=== PATIENT | male | born 1975 | race Asian ===

== ENCOUNTER 2017-08-18 20:54 | Emergency (ER) | payer BC, OTHER ==
[2017-08-18 21:09] VITALS: BP 125/85; PULSE 75; TEMP 97; BMI 25.8
[2017-08-18] MEDS ORDERED: KETOROLAC TROMETHAMINE 60 MG/2 ML VIAL IM ONE (21:22)
[2017-08-18] MEDS ORDERED: CYCLOBENZAPRINE HCL 10 MG TABLET (FP) PO ONE (21:22)
[2017-08-18] MEDS ORDERED: traMADol HCL 50 MG TABLET PO ONE ×2 (21:23→22:18)
[2017-08-18] MEDS ORDERED: LIDOCAINE 5% TOPICAL PATCH TP ONE (21:23)
--- NOTE | 2017-08-18 21:23 | PDOC ---
History of Present Illness - General Chief Complaint: Pain, Acute Stated Complaint: LEFT SIDE BACK AND LEG PAIN Time Seen by Provider: 08/18/17 21:08 History Source: Patient - History of Present Illness Occurred: reports: other Severity: reports: severe Pain Location: reports: back, lower extremity Past History - Past Medical History Allergies/Adverse Reactions: Allergies Allergy/AdvReac Type Severity Reaction Status Date / Time No Known Allergies Allergy Verified 01/21/16 09:18 Home Medications: Ambulatory Orders Cyclobenzaprine HCl [Flexeril 10 mg] 10 mg PO TID PRN #9 tablet 08/18/17 Ibuprofen [Motrin -] 2 tab PO Q6H #30 tablet 08/18/17 Tramadol HCl 50 mg PO Q6H #15 tablet MDD 200 mg 08/18/17 - Suicide/Smoking/Psychosocial Hx Smoking History: Never smoked Have you smoked in the past 12 months: No Information on smoking cessation initiated: No Hx Alcohol Use: No Drug/Substance Use Hx: No Substance Use Type: None Review of Systems - Review of Systems Constitutional: No: Chills, Fever, Unexplained wgt Loss ABD/GI: No: Nausea, Vomiting, Abdominal cramping : No: Symptoms Reported, Burning, Dysuria, Hematuria Musculoskeletal: Yes: Back Pain Neurological: No: Numbness, Tingling, Weakness *Physical Exam - Vital Signs Last Vital Signs Temp Pulse Resp BP Pulse Ox 97 F L 75 20 125/85 96 08/18/17 21:08 08/18/17 21:08 08/18/17 21:08 08/18/17 21:08 08/18/17 21:08 - Physical Exam Comments: 08/18/17 22:21 Pt currently sitting in stretcher and complaining of severe left lower back pain. Has difficulty bearing weight in ED General Appearance: Yes: Appropriately Dressed, Severe Distress HEENT: positive: Normal Voice Neck: positive: Supple Respiratory/Chest: negative: Respiratory Distress Gastrointestinal/Abdominal: positive: Soft. negative: Tender, Pulsatile Mass Musculoskeletal: negative: CVA Tenderness, Vertebral Tenderness Extremity: positive: Normal Inspection Integumentary: positive: Dry, Warm Neurologic: positive: Fully Oriented, Alert, Normal Mood/Affect, Motor Strength 5/5 Medical Decision Making - Medical Decision Making 08/18/17 21:24 41-year-old male, denies any past medical history here with worsening lower back pain. Patient states 4 weeks ago developed pain to lower back, more so on the left side and was seen by his primary doctor and given medication, similar to Motrin with no relief. Since then patient has gradually worsened, sometimes located to right lower back and sometimes the left. For the past 2 days. Pain has now started radiating to left foot. No sensory changes, lower extremity weakness, bladder or bowel incontinence el anesthesia. No dysuria, hematuria, nausea, vomiting, fever or chills. No unexplained weight loss. No IV drug use. No trauma See exam Possible sciatica No red flags at this norma, i.e cauda equina, e/o infxn, weight loss, IVDA or trauma -pain control and reassess 08/18/17 22:15 XR w/ straightening of the lumbar spine that could represent spasm. Unable to give patient flexeril in ED as pt driving family home. Dose of IM Toradol given. Prescriptions for pain control sent to pharmacy. I personally gave patient one tablet of tramadol to take home tonight as patient pharmacy is currently closed Patient to follow-up with PMD this week *DC/Admit/Observation/Transfer Diagnosis at time of Disposition: Low back pain Qualifiers: Chronicity: acute Back pain laterality: unspecified Sciatica presence: unspecified whether sciatica present Qualified Code(s): M54.5 - Low back pain - Discharge Dispostion Disposition: HOME Condition at time of disposition: Improved - Prescriptions Prescriptions: Cyclobenzaprine HCl [Flexeril 10 mg] 10 mg PO TID PRN #9 tablet PRN Reason: Lower Back Pain Ibuprofen [Motrin -] 2 tab PO Q6H #30 tablet Tramadol HCl 50 mg PO Q6H #15 tablet MDD 200 mg - Referrals Referrals: Gary Albarran MD [Primary Care Provider] - - Patient Instructions Printed Discharge Instructions: Low Back Pain Additional Instructions: You were given multiple make pain medications. The first one is Motrin which is an anti-inflammatory medication and should be taken every 6 hours with food. The next medication is Flexeril which is a muscle relaxant and can be taken every 8 hours as directed. If these medications don't relieve pain significantly. You can take a tramadol. Flexeril and tramadol can make you drowsy, so only take while home. Please follow-up with your primary care physician this week - Post Discharge Activity Forms/Work/School Notes: Back to Work
[2017-08-18] MEDS ORDERED: LIDOCAINE 5% TOPICAL PATCH ONE (21:26)
[2017-08-18] MEDS ORDERED: KETOROLAC TROMETHAMINE 60 MG/2 ML VIAL ONE (21:27)
[2017-08-18] MEDS ORDERED: LIDOCAINE PATCH REMOVAL MC SCH (22:00)
[2017-08-18] MEDS ORDERED: traMADol HCL 50 MG TABLET ONE (22:19)
== END 2017-08-18 22:25 | disposition home or self-care (01) ==
LOC: JERFT 20:54
PROC: 3E0233Z Introduction of Anti-inflammatory into Muscle, Percutaneous Approach (ICD-10-PCS; principal; 2017-08-18)
DX: M54.5 Low back pain (principal)
CPT/HCPCS: 72100-TC-FY; 99281-25

== ENCOUNTER 2017-08-23 17:16 | Inpatient (IN) | payer BC ==
--- NOTE | 2017-08-23 17:28 | PDOC ---
Rapid Medical Evaluation Time Seen by Provider: 08/23/17 17:26 Medical Evaluation: Allergies Allergy/AdvReac Type Severity Reaction Status Date / Time No Known Allergies Allergy Verified 08/23/17 17:27 08/23/17 17:28 I have performed a brief in-person evaluation of this patient. The patient presents with a chief complaint of: severe LBP radiating to LLE, now w/ numbness to L toes. Seen in ED by myself 6 days ago for back pain and dc w/ meds but no improving. XR 08/18 wnl. Sent by PMD, Dr Jordan Remy, for MRI r/o cauda equina given new onset numbness to l toes. No saddle anesthesia or B/B incontinence Pertinent physical exam findings:judy uncomfortable, sitting in W/C I have ordered the following:labs, ED team to order MRI The patient will proceed to the ED for further evaluation Discharge Disposition - Diagnosis Low back pain Qualifiers: Chronicity: acute Back pain laterality: unspecified Sciatica presence: with sciatica Sciatica laterality: sciatica of left side Qualified Code(s): M54.42 - Lumbago with sciatica, left side - Referrals - Patient Instructions - Post Discharge Activity
[2017-08-23 18:03] LABS: BASO % 0.6 % (0-2.0); EOS % 6.1 % (0-4.5); HEMATOCRIT 52.7 % (35.4-49); HEMOGLOBIN 17.5 GM/dL (11.7-16.9); LYMPH % 27.7 % (8-40); MCH 26.5 pg (25.7-33.7); MCHC 33.3 g/dl (32.0-35.9); MEAN CELL VOLUME 79.6 fl (80-96); MONO % 7.7 % (3.8-10.2); NEUT % 57.9 % (42.8-82.8); PLATELET COUNT 192 K/MM3 (134-434); RBC 6.62 M/mm3 (4.00-5.60); RDW 13.9 % (11.9-15.9); WHITE BLOOD COUNT 10.7 K/mm3 (4.0-10.0)
[2017-08-23 18:15] LABS: INR 0.95 (0.82-1.09); PROTHROMBIN TIME (PATIENT) 10.7 SEC (9.7-13.0)
[2017-08-23 19:08] LABS: ALBUMIN 4.4 g/dl (3.4-5.0); ANION GAP 8 (8-16); BILIRUBIN,TOTAL 0.6 mg/dL (0.2-1.0); BLOOD UREA NITROGEN 15 mg/dL (7-18); CALCIUM 8.8 mg/dL (8.5-10.1); CHLORIDE 104 mmol/L (98-107); CO2 28 mmol/L (21-32); CREATININE 1.2 mg/dL (0.7-1.3); GLUCOSE,RANDOM 91 mg/dL (74-106); POTASSIUM 4.6 mmol/L (3.5-5.1); SGOT/AST 56 U/L (15-37); SGPT/ALT 66 U/L (12-78); SODIUM 140 mmol/L (136-145); TOT PROT 7.3 g/dl (6.4-8.2)
[2017-08-23 19:09] LABS: ALK PHOS 82 U/L (45-117)
--- NOTE | 2017-08-23 19:32 | PDOC ---
History of Present Illness - General History Source: Patient Exam Limitations: No Limitations - History of Present Illness Initial Comments: 08/23/17 21:44 The patient is a 41 year old male with a significant past medical history of HLD who presents to the ED with complaints of back pain for several weeks. The patient reports back pain that started 3 months ago. He states his back is progressively worsening and 3 weeks ago the patient could not get out of bed without assistance of his secondary to his pain. He states his back pain is worsened in the lower back and 2 weeks ago his developed pain that radiates down his left leg. 2 days ago, patient reports numbness to his left foot, left toe, and rectum. He also reports difficulty urinating this morning but had a noraml BM this morning.. Patient went to his PMD earlier today and was sent to the ED for severe back pain, saddle anesthesia, l5 and S1 raderopalothopy and rule out compression. Denies fever or chills. Denies nausea, vomiting, or diarrhea. Denies abdominal pain. Denies lightheadedness or dizziness. Denies any other symptoms. <Maximo Mejias - Last Filed: 08/24/17 01:04> <Giovani Genao - Last Filed: 08/27/17 09:43> - General Chief Complaint: Back Pain Stated Complaint: BACK PAIN Time Seen by Provider: 08/23/17 17:26 Past History <Maximo Mejias - Last Filed: 08/24/17 01:04> - Past Medical History COPD: No Other medical history: DENIES. - Suicide/Smoking/Psychosocial Hx Smoking History: Never smoked Have you smoked in the past 12 months: No Hx Alcohol Use: No Drug/Substance Use Hx: No Substance Use Type: None <Giovani Genao - Last Filed: 08/27/17 09:43> - Past Medical History Allergies/Adverse Reactions: Allergies Allergy/AdvReac Type Severity Reaction Status Date / Time No Known Allergies Allergy Verified 08/23/17 17:27 Home Medications: Ambulatory Orders Cyclobenzaprine HCl [Flexeril 10 mg] 10 mg PO TID PRN #9 tablet 08/18/17 Ibuprofen [Motrin -] 2 tab PO Q6H #30 tablet 08/18/17 Tramadol HCl 50 mg PO Q6H #15 tablet MDD 200 mg 08/18/17 Atorvastatin Ca [Lipitor] 10 mg PO HS 08/24/17 Review of Systems - Review of Systems Able to Perform ROS?: Yes Comments:: 08/23/17 21:44 CONSTITUTIONAL: No reported: Fever, Chills, Diaphoresis, Generalized Weakness, Malaise, Loss of Appetite HEENT: No reported: Rhinorrhea, Nasal Congestion, Throat Pain, Throat Swelling, Difficulty Swallowing, Mouth Swelling, Ear Pain, Eye Pain, Visual Changes CARDIOVASCULAR: No reported: Chest Pain, Syncope, Palpitations, Irregular Heart Rate, Lightheadedness, Peripheral Edema RESPIRATORY: No reported: Cough, Shortness of Breath, SOB with Exertion, Orthopnea, Wheezing , Stridor, Hemoptysis GASTROINTESTINAL: No reported: Abdominal pain, Abdominal Distension, Nausea, Vomiting, Diarrhea, Constipation, Melena, Hematochezia GENITOURINARY: + urinary incontinence, saddle anetheisa No reported: Dysuria, Frequency, Urgency, Hesitancy, Flank Pain, Genital Pain MUSCULOSKELETAL: + back pain, leg pain, saddle anesthesia, difficulty urinating No reported: Myalgia, Arthralgia, Joint Swelling, Neck Pain SKIN: No reported: Rash, Itching, Pallor HEMEATOLOGIC/IMMUNOLOGIC: No reported: Easy Bleeding, Easy Bruising, Lymphadenopathy, Frequent infections ENDOCRINE: No reported: Unexplained Weight Gain, Unexplained Weight Loss, Heat Intolerance , Cold Intolerance NEUROLOGIC +L leg weakness, Paresthesias No reported: Headache, Vertigo, Lightheadedness, Unsteady Gait, Seizure, Mental Status Changes, Incontinence PSYCHIATRIC: No reported: Anxiety, Depression All Other Systems: Reviewed and Negative <Maximo Mejias - Last Filed: 08/24/17 01:04> *Physical Exam - Vital Signs Last Vital Signs Temp Pulse Resp BP Pulse Ox 97.8 F 84 18 144/85 99 08/23/17 17:27 08/23/17 17:27 08/23/17 17:27 08/23/17 17:27 08/23/17 17:27 - Physical Exam Comments: 08/23/17 21:45 GENERAL: The patient is awake, alert, and fully oriented, Nontoxic - in no acute distress. HEAD: Normocephalic, atraumatic. EYES: extraocular movements intact, sclera anicteric, conjunctiva clear. ENT: Normal voice, Moist mucous membranes. NECK: Normal range of motion, supple LUNGS: Breath sounds equal, clear to auscultation bilaterally. No wheezes, no rhonchi, no rales. HEART: Regular rate and rhythm, normal S1 and S2 without murmur, rub or gallop. ABDOMEN: Soft, nontender, normoactive bowel sounds. No guarding, no rebound. No CVA tenderness EXTREMITIES: Normal range of motion, no edema. No clubbing or cyanosis. No cords, erythema, or tenderness. BACK: mild diffuse tendeness on lumbar approx L5/S1 region, nof prasad bony tenderness or stepoffs. NEUROLOGICAL: LLE weakness (1/5) + demished sensation on the R buttock, sensation intact on scrotum, +good rectal tone, deminished sensation along L5, S1 dermatome PSYCH: Normal mood, normal affect. SKIN: Warm, Dry, normal turgor, <Mejias,Andrys - Last Filed: 08/24/17 01:04> - Vital Signs Last Vital Signs Temp Pulse Resp BP Pulse Ox 97.8 F 84 18 144/85 99 08/23/17 17:27 08/23/17 17:27 08/23/17 17:27 08/23/17 17:27 08/23/17 17:27 - Physical Exam Comments: 08/24/17 01:21 Neuro exam: LLE weakness 5-/5, suspect initial exam was due to limitation for pain., he is ambulatory currently <Birgit,Giovani - Last Filed: 08/27/17 09:43> ED Treatment Course - LABORATORY CBC & Chemistry Diagram: 08/23/17 17:54 08/23/17 17:54 - ADDITIONAL ORDERS Additional order review: Laboratory Results 08/23/17 08/23/17 08/23/17 17:54 17:54 17:54 PT with INR 10.70 INR 0.95 Sodium 140 Potassium 4.6 Chloride 104 Carbon Dioxide 28 Anion Gap 8 BUN 15 Creatinine 1.2 Creat Clearance w eGFR > 60 Random Glucose 91 Calcium 8.8 Total Bilirubin 0.6 AST 56 H ALT 66 Alkaline Phosphatase 82 Total Protein 7.3 Albumin 4.4 Blood Type B POSITIVE Antibody Screen Negative 08/23/17 17:54 RBC 6.62 H MCV 79.6 L MCHC 33.3 RDW 13.9 MPV 8.0 Neutrophils % 57.9 Lymphocytes % 27.7 Monocytes % 7.7 Eosinophils % 6.1 H Basophils % 0.6 - RADIOLOGY Radiograph Interpretation: 08/23/17 22:52 EXAM: MRI lumbar spine without contrast FINDINGS: 1. The study is somewhat degraded by motion artifact the remainder diagnostic quality. 2. Spondylitic changes as described below. L1-L2: Unremarkable. L2-L3: Unremarkable. L3-L4: Annular fissure. L4-L5: Right paracentral disc protrusion/herniation with inferior migration of what appears to be a large disc fragment posterior to the body of L5. This results in impingement on the thecal sac and impingement on the L5 nerve roots bilaterally and possibly the left S1 nerve root. L5-S1: Small central disc protrusion/herniation. There appears to be impingement on the left S1 nerve root. 3. The conus and cauda equina are normal in appearance. 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 - Medications Given in the ED: ED Medications Discontinued Medications Generic Name Dose Route Start Last Admin Trade Name Freq PRN Reason Stop Dose Admin Sodium Chloride 1,000 mls @ 1,000 mls/hr 08/23/17 20:02 08/23/17 20:10 Normal Saline - IV 08/23/17 21:01 1,000 mls/hr .Q1H ONE Administration Morphine Sulfate 4 mg 08/23/17 19:35 08/23/17 20:10 Morphine Injection - IVPUSH 08/23/17 19:36 4 mg ONCE ONE Administration Ondansetron HCl 4 mg 08/23/17 20:02 08/23/17 20:10 Zofran Injection IVPB 08/23/17 20:03 4 mg ONCE ONE Administration <Maximo Mejias - Last Filed: 08/24/17 01:04> - LABORATORY CBC & Chemistry Diagram: 08/23/17 17:54 08/23/17 17:54 - ADDITIONAL ORDERS Additional order review: Laboratory Results 08/23/17 08/23/17 17:54 17:54 PT with INR 10.70 INR 0.95 Blood Type B POSITIVE Antibody Screen Negative 08/23/17 17:54 RBC 6.62 H MCV 79.6 L MCHC 33.3 RDW 13.9 MPV 8.0 Neutrophils % 57.9 Lymphocytes % 27.7 Monocytes % 7.7 Eosinophils % 6.1 H Basophils % 0.6 - RADIOLOGY Radiology Studies Ordered: Category Date Time Status LUMBAR SPINE MRI W/O CONTRAST [MRI] Stat MRI 08/23/17 19:23 Ordered <Giovani Genao - Last Filed: 08/27/17 09:43> Medical Decision Making - Medical Decision Making 08/23/17 19:25 41y M hx of HL, presents with worsening back pain x 3 months, L leg weakness for 2-3 days, and saddle anesthisia, urinary incontinence since yesterday. On exam pt in n odistress but has concerning signs of cord compression. will obtain a mri to r/o cord compression PMD Hemal 08/23/17 22:58 pts MRI noted for L4-L5 right paracentral disc protrusion/herniation with inferior migration of what appears to be a large disc fragment posterior to body of L5 withimpingement of thecal sac and impingement of L5 neve root bilateral and possible left S1 nerve root. L5-Si with also a small disc protrusion and impingement of left S1 conus and cauda equina are normal in appearnce Dr. Onofre (Neurosurg) paged to discuss results will notify dr. lowe - anticipate admission for further management A portion of this note was documented by scribe services under my direction. I have reviewed the details of the note, within reason, and agree with the documentation with the following case summary and management plan written by me 08/23/17 23:[address] lowe agreew tih admission for further management stable for med surg Case discussed in detail with admitting physician including history, physical exam and ancillary studies. Admitting physician has assumed care for the patient, will follow all pending diagnostics and will complete the evaluation and treatment. CRITICAL CARE DOCUMENTATION: I spent ~35 minutes of Critical Care time, excluding separately billable procedures, involving high complexity decision making to assess, manipulate and support vital system function(s) to treat single or multiple vital organ system failure and/or to prevent further life threatening deterioration of the patient' s condition. 08/24/17 00:[address] onofre, but unable to reach him called dr. gary who is air conditioning coil assembler - requested a post void residual will have pt urinate now, staets the last time he urinated was around noon, then will place hu pts able to move his L leg well and ambulate 08/24/17 01:20 pt able to urinate about 200cc of urine hu showing minimal urine output so no retention 08/24/17 01:35 case dw again with dr. gary - suspect symptms due to disc herniation with nerve impingement, not c/w cauda equina syndrome agrees with decadron 10mg IV now and 4mg Q6h I discussed the physical exam findings, ancillary test results and final diagnoses with the patient. I answered all of the patient's questions. The patient was satisfied with the care received and felt comfortable with the discharge plan and treatment plan. The patient will call their primary care physician within 24 hours to arrange follow-up and will return to the Emergency Department with any new, persistent or worsening symptoms. <Giovani Genao - Last Filed: 08/27/17 09:43> *DC/Admit/Observation/Transfer - Attestations Scribe Attestion: 08/23/17 21:45 Documentation prepared by Maximo Mejias, acting as medical insurance claims processor for Giovani Genao MD <Maximo Mejias - Last Filed: 08/24/17 01:04> - Discharge Dispostion Decision to Admit order: Yes <Giovani Genao - Last Filed: 08/27/17 09:43> Diagnosis at time of Disposition: Cord compression - Discharge Dispostion Disposition: TRANSFER ACUTE CARE/OTHER HOSP Condition at time of disposition: Guarded
[2017-08-23] MEDS ORDERED: morphine CARPU-JECT 2 MG/1 ML DISP.SYRIN IVPUSH ONE (19:35)
[2017-08-23] MEDS ORDERED: morphine SULFATE 4 MG/ML VIAL ONE (19:48)
[2017-08-23] MEDS ORDERED: ONDANSETRON 4 MG/2 ML VIAL IVPB ONE (20:02)
[2017-08-23] MEDS ORDERED: SODIUM CHLORIDE 1,000 ML IV ONE (20:02)
[2017-08-23] MEDS ORDERED: ONDANSETRON 4 MG/2 ML VIAL ONE (20:04)
[2017-08-24] MEDS ORDERED: DEXAMETHASONE SOD PHOSPHATE 10 MG/1 ML VIAL IVPUSH ONE (01:35)
[2017-08-24 05:56] VITALS: BMI 29.5
[2017-08-24 06:56] LABS: URINE APPEARANCE CLEAR; URINE BILIRUBIN NEGATIVE (<2.0 mg/dL); URINE COLOR YELLOW; URINE GLUCOSE (UA) NEGATIVE (NEGATIVE); URINE KETONE NEGATIVE (NEGATIVE); URINE LEUK ESTERASE NEGATIVE (NEGATIVE); URINE NITRITE NEGATIVE (NEGATIVE); URINE PROTEIN NEGATIVE (NEGATIVE); URINE UROBILINOGEN NEGATIVE mg/dL (0.2-1.0)
[2017-08-24 07:10] LABS: EPI CELLS RARE /HPF (FEW); URINE MUCUS RARE
--- NOTE | 2017-08-24 09:52 | HP ---
Admitting History and Physical - Primary Care Physician PCP: Gary Albarran - Admission Chief Complaint: Sever back pain History of Present Illness: 1 year old male with a significant past medical history of HLD who presents to the ED with complaints of back pain for several weeks. The patient reports back pain that started 3 months ago. He states his back is progressively worsening and 3 weeks ago the patient could not get out of bed without assistance of his secondary to his pain. He states his back pain is worsened in the lower back and 2 weeks ago his developed pain that radiates down his left leg. 2 days ago, patient reports numbness to his left foot, left toe, and rectum. He also reports difficulty urinating this morning but had a noraml BM this morning.. Patient went to his PMD earlier today and was sent to the ED for severe back pain, saddle anesthesia, l5 and S1 raderopalothopy and rule out compression. Denies fever or chills. Denies nausea, vomiting, or diarrhea. Denies abdominal pain. Denies lightheadedness or dizziness. Denies any other symptoms. - Past Medical History Cardiovascular: Yes: Hyperlipdemia - Smoking History Smoking history: Never smoked Have you smoked in the past 12 months: No - Alcohol/Substance Use Hx Alcohol Use: No Home Medications - Allergies Allergies/Adverse Reactions: Allergies Allergy/AdvReac Type Severity Reaction Status Date / Time No Known Allergies Allergy Verified 08/23/17 17:27 - Home Medications Home Medications: Ambulatory Orders Cyclobenzaprine HCl [Flexeril 10 mg] 10 mg PO TID PRN #9 tablet 08/18/17 Ibuprofen [Motrin -] 2 tab PO Q6H #30 tablet 08/18/17 Tramadol HCl 50 mg PO Q6H #15 tablet MDD 200 mg 08/18/17 Atorvastatin Ca [Lipitor] 10 mg PO HS 08/24/17 Family Disease History - Family Disease History Family History: Unremarkable Review of Systems - Review of Systems Constitutional: reports: No Symptoms Eyes: reports: No Symptoms HENT: reports: No Symptoms Neck: reports: No Symptoms Cardiovascular: reports: No Symptoms Respiratory: reports: No Symptoms Gastrointestinal: reports: No Symptoms Genitourinary: reports: Frequency, Other (Difficulty in micturation) Musculoskeletal: reports: Extremity Pain Integumentary: reports: No Symptoms Neurological: reports: Parasthesia (Saddle and Left Foot) Psychiatric: reports: No Symptoms Pain Intensity: 8 Physical Examination Vital Signs: Vital Signs Temperature 98.3 F 08/24/17 09:35 Pulse Rate 71 08/24/17 09:35 Respiratory Rate 18 08/24/17 09:35 Blood Pressure 119/76 08/24/17 09:35 O2 Sat by Pulse Oximetry (%) 97 08/23/17 23:17 Constitutional: Yes: Well Nourished, No Distress, Calm Eyes: Yes: WNL, Conjunctiva Clear, EOM Intact HENT: Yes: Atraumatic, Normocephalic. No: Drooling Neck: Yes: Supple, Trachea Midline. No: Decreased ROM, Lymphadenopathy Cardiovascular: Yes: Regular Rate and Rhythm, S1, S2. No: JVD, Murmur Respiratory: Yes: Regular, CTA Bilaterally Gastrointestinal: Yes: Normal Bowel Sounds, Soft ...Rectal Exam: Yes: WNL, Sphincter Tone Normal, Other (Sddle subjective numbness) Extremities: Yes: WNL. No: Calf Tenderness, Cold Edema: No Peripheral Pulses WNL: Yes Peripheral Pulses: Left Doralis Pedis: 2+, Right Dorsalis Pedis: 2+ Neurological: Yes: WNL, Alert, Oriented, Cran Nerves II-XII Intact, Loss of Sensation (Left S1 Dermatome), Weakness (Left EHL). No: Aphasia, Asterixis, Babinski negative, Confusion, Dysarthria, Facial Droop, Lethargy ...Motor Strength: LLE (Left EHL weakness) Labs: CBC, BMP 08/23/17 17:54 08/23/17 17:54 Imaging - Results X-ray: Report Reviewed (Normal) MRI: Report Reviewed (L5 S1 Disc herniation) Problem List - Problems (1) Cord compression Assessment/Plan: Due to large disc herniation no queda equinq dyndrome Home Medication List Medication Instructions Recorded Confirmed Type Atorvastatin Ca [Lipitor] 10 mg PO HS 08/24/17 08/24/17 History Code(s): G95.20 - UNSPECIFIED CORD COMPRESSION
[2017-08-24] MEDS ORDERED: CYCLOBENZAPRINE HCL 10 MG TABLET (FP) PO PRN (09:53)
[2017-08-24] MEDS ORDERED: HYDROmorphone HCL CARPU-JECT 1 MG/1 ML DISP.SYRIN IVPB PRN (09:57)
[2017-08-24] MEDS ORDERED: MORPHINE SULFATE 2 MG/ML VIAL IVPB PRN (10:15)
[2017-08-24] MEDS: IBUPROFEN 400 MG TABLET (FP) PO SCH ×3 (11:00→17:28)
[2017-08-24] MEDS: traMADol HCL 50 MG TABLET PO SCH ×3 (11:00→17:32)
[2017-08-24 11:27] LABS: CHOLESTEROL 164 mg/dL (50-200); TRIGLYCERIDES 221 mg/dL (35-160)
[2017-08-24 11:30] LABS: HDL CHOLESTEROL 30 mg/dL (40-60)
[2017-08-24 18:24] VITALS: BP 132/79; PULSE 64; TEMP 98.1
[2017-08-24] MEDS ORDERED: ATORVASTATIN CA 10 MG TABLET (FP) PO SCH (22:00)
== END 2017-08-24 19:13 | disposition short-term general hospital (02) | DRG 552 ==
LOC: JER 17:16 → JERBED 23:11 → UNDOADMIN 23:17 → JERBED 23:17 → J7W 08-24 02:51
PROVIDERS: ADMIT Internal Medicine; ATTEND Internal Medicine
DX: M51.06 Intervertebral disc disorders with myelopathy, lumbar region (principal); E78.5 Hyperlipidemia, unspecified; R32 Unspecified urinary incontinence
CPT/HCPCS: 36415; 72148-TC; 80053; 80061; 81003; 81015; 83721; 85025; 85610; 86850; 86900; 86901; 99282-25; J1100; J7030

== ENCOUNTER 2018-02-21 17:06 | Emergency (ER) | payer BC ==
[2018-02-21] MEDS ORDERED: IBUPROFEN 400 MG TABLET (FP) PO ONE (17:18)
[2018-02-21] MEDS ORDERED: IBUPROFEN 600 MG TABLET (FP) PO ONE (17:18)
--- NOTE | 2018-02-21 17:18 | PDOC ---
Rapid Medical Evaluation Time Seen by Provider: 02/21/18 17:15 Medical Evaluation: Allergies Allergy/AdvReac Type Severity Reaction Status Date / Time No Known Allergies Allergy Verified 08/23/17 17:27 02/21/18 17:15 The patient presents with a chief complaint of: fever, cough, sore throat, body aches x 3 days I have performed a brief in-person evaluation of this patient; Pertinent physical exam findings: 102.6, tachy, no erythema to post pharynx I have ordered the following: rapid strep, influenza , motrin 600mg The patient will proceed to the ED for further evaluation. Discharge Disposition - Diagnosis Fever Qualifiers: Fever type: unspecified Qualified Code(s): R50.9 - Fever, unspecified - Discharge Dispostion Disposition: HOME Condition at time of disposition: Stable - Prescriptions Prescriptions: Albuterol Sulfate Inhaler - [Ventolin HFA Inhaler -] 1 - 2 inh PO Q4H #1 inhaler - Referrals - Patient Instructions - Post Discharge Activity
[2018-02-21 17:22] VITALS: BP 140/70; BMI 63.3
[2018-02-21] MEDS ORDERED: ALBUTEROL SO4 2.5/IPRATROPIUM 0.5 INH SOL 3 ML VIAL.NEB. NEB ONE ×2 (18:05→18:13)
--- NOTE | 2018-02-21 18:10 | PDOC ---
History of Present Illness - General Chief Complaint: Cold Symptoms Stated Complaint: COLD SYMPTOMS Time Seen by Provider: 02/21/18 17:15 History Source: Patient Exam Limitations: No Limitations - History of Present Illness Initial Comments: 02/21/18 18:05 Patient here with complaints of chills, fevers, moist productive cough of yellow phlegm, body aches and sore throat pain 3-4 days. 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 Timing/Duration: reports: just prior to arrival, getting worse Severity: reports: mild, moderate Associated Symptoms: reports: cough, earache, fever/chills, nasal congestion, shortness of breath Past History - Travel Traveled outside of the country in the last 30 days: No Close contact w/someone who was outside of country & ill: No - Past Medical History Allergies/Adverse Reactions: Allergies Allergy/AdvReac Type Severity Reaction Status Date / Time No Known Allergies Allergy Verified 02/21/18 17:18 Home Medications: Ambulatory Orders Atorvastatin Ca [Lipitor] 10 mg PO HS 08/24/17 Albuterol Sulfate Inhaler - [Ventolin HFA Inhaler -] 1 - 2 inh PO Q4H #1 inhaler 02/21/18 Anemia: No Asthma: No Cancer: No Cardiac Disorders: No CVA: No COPD: No CHF: No Dementia: No Diabetes: No GI Disorders: No Disorders: No HTN: No Hypercholesterolemia: Yes Liver Disease: No Seizures: No Thyroid Disease: No - Surgical History Abdominal Surgery: No Appendectomy: No Cardiac Surgery: No Cholecystectomy: No Lung Surgery: No Neurologic Surgery: No Orthopedic Surgery: No - Suicide/Smoking/Psychosocial Hx Smoking History: Never smoked Have you smoked in the past 12 months: No Information on smoking cessation initiated: No Hx Alcohol Use: No Drug/Substance Use Hx: No Substance Use Type: None Hx Substance Use Treatment: No Review of Systems - Review of Systems Able to Perform ROS?: Yes Is the patient limited Upper Sorbian proficient: Yes Constitutional: Yes: Symptoms Reported, See HPI, Fever, Loss of Appetite, Malaise HEENTM: Yes: Symptoms Reported, See HPI Respiratory: Yes: Symptoms reported, See HPI, Cough, Wheezing Musculoskeletal: Yes: See HPI. No: Symptoms Reported Integumentary: Yes: See HPI. No: Symptoms Reported Neurological: Yes: Symptoms reported All Other Systems: Reviewed and Negative *Physical Exam - Vital Signs Last Vital Signs Temp Pulse Resp BP Pulse Ox 102.3 F H 120 H 16 140/70 95 02/21/18 17:18 02/21/18 17:18 02/21/18 17:18 02/21/18 17:18 02/21/18 17:18 - Physical Exam General Appearance: Yes: Nourished, Appropriately Dressed, Apparent Distress, Mild Distress HEENT: positive: BEHZAD, Normal ENT Inspection, TMs Normal, Pharynx Normal (no exudate) Neck: positive: Tender, Supple, Lymphadenopathy (R), Lymphadenopathy (L) Respiratory/Chest: positive: Lungs Clear, Normal Breath Sounds Cardiovascular: positive: Regular Rhythm Gastrointestinal/Abdominal: positive: Normal Bowel Sounds, Soft. 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, Fully Oriented, Alert, Normal Mood/ Affect, Normal Response, Motor Strength 5/5 Moderate Sedation - Procedure Monitoring Vital Signs: Procedure Monitoring Vital Signs Temperature 102.3 F H 02/21/18 17:18 Pulse Rate 120 H 02/21/18 17:18 Respiratory Rate 16 02/21/18 17:18 Blood Pressure 140/70 02/21/18 17:18 O2 Sat by Pulse Oximetry (%) 95 02/21/18 17:18 ED Treatment Course - Medications Given in the ED: ED Medications Discontinued Medications Generic Name Dose Route Start Last Admin Trade Name Freq PRN Reason Stop Dose Admin Ibuprofen 600 mg 02/21/18 17:18 02/21/18 17:23 Motrin - PO 02/21/18 17:19 600 mg ONCE ONE Administration Progress Note - Progress Note Progress Note: Strep throat, will treat with 1.2 million units of Bicillin IM with no reaction after 30 minutes *DC/Admit/Observation/Transfer Diagnosis at time of Disposition: Strep throat - Discharge Dispostion Disposition: HOME Condition at time of disposition: Stable Decision to Admit order: No - Referrals - Patient Instructions Printed Discharge Instructions: DI for Strep Throat Additional Instructions: Rest, drink lots of fluids: Teas, water, soups Eat cold things: Ice cream, ice pops, ice chips Saltwater gargles Steamy showers/seem to face break up mucus Avoid contact with others until fevers and pain resolved Lots of handwashing and good hygiene, this is contagious You have been treated with Bicillin LA 1.2 million units injection which is a one-time treatment for strep pharyngitis. You will not need to take any further antibiotics. Tylenol or Motrin for fever and pain Followup with private physician in one to 2 days as needed if not improving Return to emergency department for worsened symptoms, fevers, dehydration - Post Discharge Activity Forms/Work/School Notes: Back to Work
[2018-02-21 18:51] VITALS: PULSE 90; TEMP 100.1
[2018-02-21] MEDS ORDERED: PENICILLIN G BENZATHINE 1,200,000 UNIT/2 ML PFS IM ONE (18:51)
[2018-02-21] MEDS ORDERED: PENICILLIN G BENZATHINE 2,400,000 UNIT/4 ML PFS ONE (18:53)
== END 2018-02-21 19:28 | disposition home or self-care (01) ==
LOC: JERFT 17:06
PROC: 3E0F7GC Introduction of Other Therapeutic Substance into Respiratory Tract, Via Natural or Artificial Opening (ICD-10-PCS; principal; 2018-02-21)
PROC: 3E02329 Introduction of Other Anti-infective into Muscle, Percutaneous Approach (ICD-10-PCS; 2018-02-21)
DX: J02.0 Streptococcal pharyngitis (principal); B95.0 Streptococcus, group A, as the cause of diseases classified elsewhere
CPT/HCPCS: 87804; 87880; 99281-25

== ENCOUNTER 2018-04-21 09:00 | Emergency (ER) | payer BC ==
[2018-04-21 09:06] VITALS: BP 152/78; TEMP 98.1; BMI 27.3
--- NOTE | 2018-04-21 09:44 | PDOC ---
History of Present Illness - General Chief Complaint: Cold Symptoms Stated Complaint: RT EAR PAIN, FEVER Time Seen by Provider: 04/21/18 09:10 History Source: Patient Exam Limitations: No Limitations Past History - Past Medical History Allergies/Adverse Reactions: Allergies Allergy/AdvReac Type Severity Reaction Status Date / Time No Known Allergies Allergy Verified 04/21/18 09:04 Home Medications: Ambulatory Orders Atorvastatin Ca [Lipitor] 10 mg PO HS 08/24/17 Albuterol Sulfate Inhaler - [Ventolin HFA Inhaler -] 1 - 2 inh PO Q4H #1 inhaler 02/21/18 Azithromycin 250 mg PO DAILY #4 tablet 04/21/18 Anemia: No Asthma: No Cancer: No Cardiac Disorders: No CVA: No COPD: No CHF: No Dementia: No Diabetes: No GI Disorders: No Disorders: No HTN: No Hypercholesterolemia: Yes Liver Disease: No Seizures: No Thyroid Disease: No - Surgical History Abdominal Surgery: No Appendectomy: No Cardiac Surgery: No Cholecystectomy: No Lung Surgery: No Neurologic Surgery: No Orthopedic Surgery: No - Suicide/Smoking/Psychosocial Hx Smoking History: Never smoked Have you smoked in the past 12 months: No Hx Alcohol Use: No Drug/Substance Use Hx: No Substance Use Type: None Hx Substance Use Treatment: No *Physical Exam - Vital Signs Last Vital Signs Temp Pulse Resp BP Pulse Ox 98.1 F 104 H 18 152/78 96 04/21/18 09:04 04/21/18 09:04 04/21/18 09:04 04/21/18 09:04 04/21/18 09:04 - Physical Exam General Appearance: No: Apparent Distress HEENT: positive: Normal ENT Inspection, TMs Normal, Pharynx Normal Respiratory/Chest: positive: Lungs Clear, Normal Breath Sounds. negative: Respiratory Distress Cardiovascular: positive: Regular Rhythm, Regular Rate, S1, S2. negative: Murmur Gastrointestinal/Abdominal: positive: Normal Bowel Sounds, Soft. negative: Tender, Distended, Guarding, Rebound Integumentary: positive: Normal Color Neurologic: positive: Alert, Normal Mood/Affect Moderate Sedation - Procedure Monitoring Vital Signs: Procedure Monitoring Vital Signs Temperature 98.1 F 04/21/18 09:04 Pulse Rate 104 H 04/21/18 09:04 Respiratory Rate 18 04/21/18 09:04 Blood Pressure 152/78 04/21/18 09:04 O2 Sat by Pulse Oximetry (%) 96 04/21/18 09:04 ED Treatment Course - RADIOLOGY Radiology Studies Ordered: Category Date Time Status CHEST PA & LAT [RAD] Stat Radiology 04/21/18 09:20 Taken Medical Decision Making - Medical Decision Making 42 y/o M with hx of HLD, back surgery presents with fever, dry cough, rhinorrhea x 2-3 weeks. Mentions slight R ear pain today. Denies sob, cp, abd pain, n/v/d. Patient took Tylenol prior to coming. Has not yet seen PCP re: his symptoms. Will r/o PNA Plan: CXR 04/21/18 09:43 CXR wet read negative Given patient with URI sxs x 3 weeks and though afebrile (patient took Tylenol prior to coming), will treat for possible infectious sxs with Azithromycin 04/21/18 10:07 *DC/Admit/Observation/Transfer Diagnosis at time of Disposition: URI (upper respiratory infection) Qualifiers: URI type: unspecified URI Qualified Code(s): J06.9 - Acute upper respiratory infection, unspecified - Discharge Dispostion Disposition: HOME - Prescriptions Prescriptions: Azithromycin 250 mg PO DAILY #4 tablet - Referrals Referrals: Gary Albarran MD [Primary Care Provider] - 2 Days - Patient Instructions Printed Discharge Instructions: DI for Viral Upper Respiratory Infection -- Adult Additional Instructions: Thank you for choosing [facility]. It was a pleasure taking care of you. Your chest xray was negative Given your symptoms have been going on for 2-3 weeks, you were prescribed short course of antibiotics. Use Nedi-pot to help with congestion You can also try saline nasal spray Follow-up with your doctor in 2-3 days Return to the Emergency Department if your symptoms worsen or persist or have other concerning symptoms. - Post Discharge Activity
[2018-04-21] MEDS ORDERED: AZITHROMYCIN 250 MG TABLET PO ONE (10:02)
[2018-04-21] MEDS ORDERED: AZITHROMYCIN 250 MG TABLET ONE (10:06)
[2018-04-21 10:17] VITALS: PULSE 84
== END 2018-04-21 10:19 | disposition home or self-care (01) ==
LOC: JERFT 09:00
DX: J06.9 Acute upper respiratory infection, unspecified (principal)
CPT/HCPCS: 71046-TC-FY; 99281-25

== ENCOUNTER 2018-09-20 06:58 | Emergency (ER) | payer OTHER, BC ==
[2018-09-20 07:20] VITALS: BP 153/101; PULSE 71; TEMP 97.6; BMI 27.3
[2018-09-20] MEDS ORDERED: diazePAM 5 MG TABLET PO ONE (07:40)
[2018-09-20] MEDS ORDERED: KETOROLAC TROMETHAMINE 30 MG/1 ML VIAL IM ONE (07:40)
[2018-09-20] MEDS ORDERED: LIDOCAINE 5% TOPICAL PATCH TP ONE (07:40)
[2018-09-20] MEDS ORDERED: LIDOCAINE 5% TOPICAL PATCH ONE (07:46)
[2018-09-20] MEDS ORDERED: KETOROLAC TROMETHAMINE 30 MG/1 ML VIAL ONE (07:47)
[2018-09-20] MEDS ORDERED: diazePAM 5 MG TABLET ONE (07:47)
--- NOTE | 2018-09-20 07:58 | PDOC ---
History of Present Illness - General History Source: Patient Exam Limitations: No Limitations <Xin Rockwell - Last Filed: 09/20/18 08:38> <KarelyJulee Doctien - Last Filed: 09/20/18 10:56> - General Chief Complaint: Chronic pain Stated Complaint: PAIN Time Seen by Provider: 09/20/18 07:24 Past History - Past Medical History Anemia: No Asthma: No Cancer: No Cardiac Disorders: No CVA: No COPD: No CHF: No Dementia: No Diabetes: No GI Disorders: No Disorders: No HTN: No Hypercholesterolemia: Yes Liver Disease: No Seizures: No Thyroid Disease: No - Surgical History Abdominal Surgery: No Appendectomy: No Cardiac Surgery: No Cholecystectomy: No Lung Surgery: No Neurologic Surgery: No Orthopedic Surgery: No - Suicide/Smoking/Psychosocial Hx Smoking History: Never smoked Have you smoked in the past 12 months: No Hx Alcohol Use: No Drug/Substance Use Hx: No Substance Use Type: None Hx Substance Use Treatment: No <Luli,Neha - Last Filed: 09/20/18 08:38> <Julee Cali - Last Filed: 09/20/18 10:56> - Past Medical History Allergies/Adverse Reactions: Allergies Allergy/AdvReac Type Severity Reaction Status Date / Time No Known Allergies Allergy Verified 09/20/18 07:20 Home Medications: Ambulatory Orders Atorvastatin Ca [Lipitor] 10 mg PO HS 08/24/17 Diazepam [Valium] 5 mg PO Q8H PRN #15 tablet MDD 3 09/20/18 Lidocaine 5% Patch [Lidoderm -] 1 patch TP DAILY #7 patch 09/20/18 *Physical Exam - Vital Signs Last Vital Signs Temp Pulse Resp BP Pulse Ox 97.6 F 71 18 153/101 H 97 09/20/18 07:16 09/20/18 07:16 09/20/18 07:16 09/20/18 07:16 09/20/18 07:16 - Physical Exam General Appearance: No: Apparent Distress Neck: positive: Supple. negative: Tender midline Respiratory/Chest: positive: Lungs Clear, Normal Breath Sounds. negative: Respiratory Distress Cardiovascular: positive: Regular Rhythm, Regular Rate, S1, S2. negative: Murmur Gastrointestinal/Abdominal: positive: Normal Bowel Sounds, Soft. negative: Tender, Distended, Guarding, Rebound Musculoskeletal: positive: Muscle Spasm, Other (+R thoracic paraspinal muscle tenderness). 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, Fully Oriented, Alert, Normal Mood/ Affect, Motor Strength 5/5 <Xin Rockwell - Last Filed: 09/20/18 08:38> - Vital Signs Last Vital Signs Temp Pulse Resp BP Pulse Ox 97.6 F 71 18 153/101 H 97 09/20/18 07:16 09/20/18 07:16 09/20/18 07:16 09/20/18 07:16 09/20/18 07:16 <Julee Cali - Last Filed: 09/20/18 10:56> ED Treatment Course - Medications Given in the ED: ED Medications Discontinued Medications Generic Name Dose Route Start Last Admin Trade Name Dana PRN Reason Stop Dose Admin Acetaminophen 975 mg 09/20/18 08:38 09/20/18 08:40 Tylenol - PO 09/20/18 08:39 975 mg ONCE ONE Administration Diazepam 5 mg 09/20/18 07:40 09/20/18 07:54 Valium - PO 09/20/18 07:41 5 mg ONCE ONE Administration Ketorolac Tromethamine 30 mg 09/20/18 07:40 09/20/18 07:54 Toradol Injection - IM 09/20/18 07:41 30 mg ONCE ONE Administration Lidocaine 1 patch 09/20/18 07:40 09/20/18 07:54 Lidoderm Patch - TP 09/20/18 07:41 1 patch ONCE ONE Administration <Julee Cali - Last Filed: 09/20/18 10:56> Medical Decision Making - Medical Decision Making 42 y/o M with hx of L4-L5, L5-S1 disc herniation s/p laminotomy and discectomy presents with middle back pain radiating up to B/L shoulders and down the arms since the surgery, worsening yesterday. Patient has neurologist, Dr. Codie Grijalva, whom he last saw in May; patient is pending repeat MRI of L spine (approval for testing got delayed due to worker's compensation; is now pending to schedule the testing). Mentions occasionally feeling tingling along BUE (from B/L shoulders down to elbows). Patient saw PCP yesterday, but was not given any pain meds. He also has not tried anything at home either; states also has not tried anything in past either. Denies fever, sob, cp, abd pain, n/v, saddle/groin paresthesia, bowel/bladder incontinence. No evidence of weakness on exam; less likely cord compression/myelopathy Acute on chronic back pain: Toradol, Valium, Lidocaine patch 09/20/18 07:50 <Xin Rockwell - Last Filed: 09/20/18 08:38> - Medical Decision Making The patient was seen and evaluated in conjunction with midlevel provider under my direct supervision, ancillary studies were reviewed. I agree with the plan as outlined BRUNA Rockwell. HPI, workup/dispo as outlined. VS reviewed, wnl. anticipate discharge, pcp followup, return precautions 09/20/18 10:56 <Julee Cali - Last Filed: 09/20/18 10:56> *DC/Admit/Observation/Transfer - Discharge Dispostion Decision to Admit order: No <Xin Rockwell - Last Filed: 09/20/18 08:38> <Julee Cali - Last Filed: 09/20/18 10:56> Diagnosis at time of Disposition: Chronic thoracic back pain Qualifiers: Back pain laterality: right Qualified Code(s): M54.6 - Pain in thoracic spine - Discharge Dispostion Condition at time of disposition: Stable - Prescriptions Prescriptions: Diazepam [Valium] 5 mg PO Q8H PRN #15 tablet MDD 3 PRN Reason: Muscle Spasms Lidocaine 5% Patch [Lidoderm -] 1 patch TP DAILY #7 patch - Referrals Referrals: Gary Albarran MD [Primary Care Provider] - 2 Days - Patient Instructions Printed Discharge Instructions: DI for Thoracic Back Pain Additional Instructions: Thank you for choosing [facility]. It was a pleasure taking care of you. You may take Motrin 600 mg every 6 hours by mouth as needed for mild to moderate pain. Take Motrin with food. Take Valium as needed for muscle spasms. This medication can also make you drowsy so please be cautious with driving or performing heavy physical work. Apply lidocaine patch for 12 hours and then keep off for 12 hours You may also apply warm compresses Please follow-up with your neurologist - consider MRI of thoracic spine as outpatient Return to the Emergency Department if your symptoms worsen or persist, unable to control bowel or bladder movements, numbness around groin, difficulty walking or other concerning symptoms. - Post Discharge Activity
[2018-09-20] MEDS ORDERED: ACETAMINOPHEN 325 MG TABLET (FP) PO ONE (08:38)
[2018-09-20] MEDS ORDERED: ACETAMINOPHEN 325 MG TABLET (FP) ONE (08:40)
== END 2018-09-20 08:43 | disposition home or self-care (01) ==
LOC: JER 06:58
PROC: 3E0233Z Introduction of Anti-inflammatory into Muscle, Percutaneous Approach (ICD-10-PCS; principal; 2018-09-20)
DX: M54.6 Pain in thoracic spine (principal); G89.29 Other chronic pain; E78.00 Pure hypercholesterolemia, unspecified
CPT/HCPCS: 99281-25

== ENCOUNTER 2022-11-10 14:40 | Emergency (ER) | payer BC, OTHER ==
[2022-11-10 14:56] VITALS: BP 110/69; PULSE 67; RESP 18; TEMP 98.1; BMI 25.5
[2022-11-10] MEDS ORDERED: DALBAVANCIN HCL 1,500 MG in DEXTROSE 5%-WATER - 500 ML IVPB ONE (15:58)
[2022-11-10 17:45] LABS: BASO % 0.7 % (0-2.0); EOS % 3.3 % (0-4.5); HEMATOCRIT 46.2 % (35.4-49); HEMOGLOBIN 15.8 GM/dL (11.7-16.9); LYMPH % 22.9 % (8-40); MCH 26.9 pg (25.7-33.7); MCHC 34.2 g/dl (32.0-35.9); MEAN CELL VOLUME 78.7 fl (80-96); MEAN PLT VOLUME 8.2 fl (7.5-11.1); MONO % 8.3 % (3.8-10.2); NEUT % 64.8 % (42.8-82.8); PLATELET COUNT 170 10^3/uL (134-434); RBC 5.87 M/mm3 (4.00-5.60); RDW 13.3 % (11.9-15.9); WHITE BLOOD COUNT 8.2 K/mm3 (4.0-10.0)
[2022-11-10 17:49] LABS: POTASSIUM 4.4 mmol/L (3.5-5.1)
[2022-11-10 17:51] LABS: CALCIUM 8.7 mg/dL (8.5-10.1)
[2022-11-10 17:52] LABS: ALBUMIN 3.7 g/dl (3.4-5.0); BLOOD UREA NITROGEN 15.9 mg/dL (7-18)
[2022-11-10] MEDS ORDERED: DALBAVANCIN HCL 500 MG VIAL (RESTRICTED TO ID ONLY) IVPB ONE (17:53)
[2022-11-10 17:56] LABS: BILIRUBIN,TOTAL 0.6 mg/dL (0.2-1); TOT PROT 6.6 g/dl (6.4-8.2)
[2022-11-10 18:23] LABS: ERYTHROCYTE SEDIMENTATION RATE 8 mm/hr (0-10)
== END 2022-11-10 19:05 | disposition home or self-care (01) ==
LOC: JER 14:40
DX: L03.115 Cellulitis of right lower limb (principal)
CPT/HCPCS: 36415; 73590-TC-RT-FY; 80053; 85025; 85651; 86140; 87040; 87070; 87186; 87205; 99284-25; J0875